=== PATIENT | female | born 1930 | race African-American/Black ===

== ENCOUNTER 2021-12-03 10:49 | Inpatient (IN) ==
[2021-12-03] MEDS ORDERED: SODIUM CHLORIDE 0.9% 2,200 ML IV ONE (11:16)
[2021-12-03] MEDS ORDERED: CLINDAMYCIN INJ 600 MG/50 ML PREMIX IV STA (11:17)
[2021-12-03] MEDS ORDERED: LEVOFLOXACIN INJ 750 MG/150 ML PREMIX IV STA (11:17)
[2021-12-03 11:44] LABS: Basophils % 0.3 % (0.0-0.8); Eosinophils # 0.1 10*3/uL (0.0-0.87); Eosinophils % 0.7 % (0.00-10.9); Hematocrit 29.8 VOL% (35.7-47.0); Hemoglobin 9.4 GM/DL (12.0-16.0); Immature Granulocytes % 1.6 %; Immature Granulocytes Absolute 0.16 #; Lymphocytes # 1.8 10*3/uL (1.4-4.0); Lymphocytes % 18.4 % (21.3-54.2); Mean Corpuscular HGB Conc 31.5 GM/DL (32-36); Mean Corpuscular Volume 92.8 FL (87-102); Mean Platelet Volume 8.7 FL (9.6-12.0); Monocytes % 10.9 % (1.7-12.7); NRBC # 0.02 10*3/uL; Neutrophils % 68.1 % (38.7-73.9); Platelet Count 216 T/CUMM (130-400); Red Blood Count 3.21 MC/CUMM (3.8-5.5); Red Cell Distribution Width 14.7 % (9.3-17.3); White Blood Count 9.7 T/CUMM (4-12)
[2021-12-03 12:07] LABS: Albumin 1.4 G/DL (3.4-5.0); Bilirubin,Total 1.6 MG/DL (0.20-1.00); Calcium 9.3 MG/DL (8.5-10.1); Potassium 4.1 MMOL/L (3.5-5.1); Total Protein 5.9 G/DL (6.4-8.2)
[2021-12-03 12:19] LABS: Bilirubin,Urine Negative (Negative); Blood, Urine Negative (Negative); Glucose,Urine (UA) Negative (Negative); Ketones,Urine Negative (Negative); Mucus,Urine Occasional /LPF (Occasional); Nitrite,Urine Negative (Negative); Protein,Urine 30 MG/DL; RBC,Urine 2 /HPF (0-4); Squamous Epithelial Cell,Urine Occasional /HPF (0-10); Urine Appearance Slightly Hazy (Clear); Urine Color Amber (Yellow); Urine Specific Gravity 1.019 (1.001-1.035)
[2021-12-03 13:03] LABS: INR 1.1; PT Patient Result 12.1 SECS (10.5-12.0); Partial Thromboplastin Time 27.3 SECS (23.8-32.1)
[2021-12-03] MEDS ORDERED: DEXTROSE 10% 250 ML BAG IV PRN (20:42)
[2021-12-03] MEDS ORDERED: GLUCAGON 1 MG VIAL IM PRN (20:42)
[2021-12-03] MEDS ORDERED: ONDANSETRON 4 MG/2 ML VIAL IV PRN (20:45)
[2021-12-03] MEDS: CLINDAMYCIN INJ 600 MG/50 ML PREMIX IV SCH (22:08)
[2021-12-03] MEDS: SODIUM HYPOCHLORITE 0.25% IRRIG 473 ML BOTTLE TOP SCH ×2 (22:08→23:15)
[2021-12-03] MEDS: ENOXAPARIN 40 MG/0.4 ML SYRINGE SUBCUT SCH (22:08)
[2021-12-04] MEDS: SODIUM HYPOCHLORITE 0.25% IRRIG 473 ML BOTTLE TOP SCH ×3 (01:03→21:10)
[2021-12-04] MEDS: INSULIN REGULAR 100 UNIT/ML SUBCUT SCH ×4 (01:03→18:41)
[2021-12-04] MEDS: CLINDAMYCIN INJ 600 MG/50 ML PREMIX IV SCH ×3 (03:34→17:50)
[2021-12-04 04:50] LABS: Basophils % 0.1 % (0.0-0.8); Eosinophils % 0.1 % (0.00-10.9); Hematocrit 23.3 VOL% (35.7-47.0); Immature Granulocytes % 1.7 %; Immature Granulocytes Absolute 0.16 #; Lymphocytes # 1.5 10*3/uL (1.4-4.0); Lymphocytes % 16.2 % (21.3-54.2); Mean Corpuscular HGB Conc 31.3 GM/DL (32-36); Mean Corpuscular Volume 93.6 FL (87-102); Mean Platelet Volume 8.7 FL (9.6-12.0); Monocytes % 13.1 % (1.7-12.7); Neutrophils % 68.8 % (38.7-73.9); Platelet Count 176 T/CUMM (130-400); Red Cell Distribution Width 14.9 % (9.3-17.3); White Blood Count 9.4 T/CUMM (4-12)
[2021-12-04 04:51] LABS: Hemoglobin 7.3 GM/DL (12.0-16.0); Red Blood Count 2.49 MC/CUMM (3.8-5.5)
[2021-12-04 05:01] LABS: Potassium 4.3 MMOL/L (3.5-5.1)
[2021-12-04 05:09] LABS: Band Neutrophils 4 % (0-10); Hypochromia 1+; Lymphocytes 14 % (20-55); Microcytosis 1+; Platelet Estimate Adequate; Segmented Neutrophils 67 % (50-85); Total Cells Counted 100
[2021-12-04] MEDS: PANTOPRAZOLE 40 MG VIAL IV SCH (08:31)
[2021-12-04] MEDS: LEVOFLOXACIN INJ 750 MG/150 ML PREMIX IV SCH (11:44)
[2021-12-04] MEDS: ACETAMINOPHEN 325 MG TABLET PO PRN (13:32)
[2021-12-04] MEDS: ENOXAPARIN 40 MG/0.4 ML SYRINGE SUBCUT SCH (21:10)
[2021-12-05] MEDS: CLINDAMYCIN INJ 600 MG/50 ML PREMIX IV SCH ×4 (01:09→17:48)
[2021-12-05] MEDS: INSULIN REGULAR 100 UNIT/ML SUBCUT SCH ×4 (01:09→18:24)
[2021-12-05] MEDS: ACETAMINOPHEN 325 MG TABLET PO PRN ×3 (04:06→13:30)
[2021-12-05 06:39] LABS: Basophils % 0.1 % (0.0-0.8); Eosinophils % 0.1 % (0.00-10.9); Hematocrit 24.9 VOL% (35.7-47.0); Hemoglobin 7.9 GM/DL (12.0-16.0); Immature Granulocytes % 2.4 %; Immature Granulocytes Absolute 0.23 #; Lymphocytes # 1.5 10*3/uL (1.4-4.0); Lymphocytes % 15.2 % (21.3-54.2); Mean Corpuscular HGB Conc 31.7 GM/DL (32-36); Mean Corpuscular Volume 91.9 FL (87-102); NRBC # 0.02 10*3/uL; Neutrophils % 69.2 % (38.7-73.9); Platelet Count 190 T/CUMM (130-400); Red Blood Count 2.71 MC/CUMM (3.8-5.5); White Blood Count 9.6 T/CUMM (4-12)
[2021-12-05 07:06] LABS: Band Neutrophils 4 % (0-10); Hypochromia 1+; Lymphocytes 16 % (20-55); Microcytosis 1+; Platelet Estimate Adequate; Segmented Neutrophils 72 % (50-85); Total Cells Counted 100
[2021-12-05 07:10] LABS: Calcium 9.7 MG/DL (8.5-10.1); Osmolality,Calculated 274.2 MOS/KG (273-304); Potassium 4.2 MMOL/L (3.5-5.1)
[2021-12-05 07:39] LABS: Alkaline Phosphatase 82 U/L (45-117); Total Protein 5.2 G/DL (6.4-8.2)
[2021-12-05 07:44] LABS: Alanine Aminotransferase 104 U/L (13-56); Aspartate Amino Transferase 150 U/L (0-37); Calcium 9.1 MG/DL (8.5-10.1)
[2021-12-05 07:46] LABS: Bilirubin,Total < 0.39 MG/DL (0.20-1.00); Blood Urea Nitrogen 28 MG/DL (7-18); Estimated Glom Filtration Rate 86 ML/MIN; Glucose 108 MG/DL (74-106); Osmolality,Calculated 279.8 MOS/KG (273-304); Sodium 137 MMOL/L (136-145)
[2021-12-05 07:48] LABS: Carbon Dioxide 30 MMOL/L (21-32); Potassium 4.3 MMOL/L (3.5-5.1)
[2021-12-05] MEDS: PANTOPRAZOLE 40 MG VIAL IV SCH (09:30)
[2021-12-05] MEDS: SODIUM HYPOCHLORITE 0.25% IRRIG 473 ML BOTTLE TOP SCH ×2 (09:31→21:34)
[2021-12-05] MEDS: MORPHINE 2 MG/1 ML SYRINGE IV PRN (14:00)
[2021-12-05] MEDS: LEVOFLOXACIN INJ 750 MG/150 ML PREMIX IV SCH (16:05)
[2021-12-05] MEDS: ENOXAPARIN 40 MG/0.4 ML SYRINGE SUBCUT SCH (21:34)
[2021-12-06] MEDS: CLINDAMYCIN INJ 600 MG/50 ML PREMIX IV SCH ×4 (00:03→17:47)
[2021-12-06] MEDS: ACETAMINOPHEN 325 MG TABLET PO PRN (00:04)
[2021-12-06] MEDS: MORPHINE 2 MG/1 ML SYRINGE IV PRN ×2 (00:07→12:14)
[2021-12-06] MEDS: INSULIN REGULAR 100 UNIT/ML SUBCUT SCH ×4 (00:27→17:45)
[2021-12-06] MEDS: PANTOPRAZOLE 40 MG VIAL IV SCH (09:10)
[2021-12-06] MEDS ORDERED: TUBERCULIN SKIN TEST 0.1 ML SYRINGE INTRADERM ONE (09:30)
[2021-12-06] MEDS: SODIUM HYPOCHLORITE 0.25% IRRIG 473 ML BOTTLE TOP SCH ×2 (09:30→23:08)
[2021-12-06] MEDS: LEVOFLOXACIN INJ 750 MG/150 ML PREMIX IV SCH (13:02)
[2021-12-06] MEDS: ENOXAPARIN 40 MG/0.4 ML SYRINGE SUBCUT SCH (23:08)
[2021-12-07] MEDS: CLINDAMYCIN INJ 600 MG/50 ML PREMIX IV SCH ×3 (01:12→12:54)
[2021-12-07] MEDS: INSULIN REGULAR 100 UNIT/ML SUBCUT SCH ×3 (03:23→15:32)
[2021-12-07] MEDS: PANTOPRAZOLE 40 MG VIAL IV SCH (08:58)
[2021-12-07 12:50] VITALS: BP 118/56
[2021-12-07] MEDS: SODIUM HYPOCHLORITE 0.25% IRRIG 473 ML BOTTLE TOP SCH (15:32)
[2021-12-07] MEDS: LEVOFLOXACIN INJ 750 MG/150 ML PREMIX IV SCH (15:33)
== END 2021-12-07 15:05 | disposition home health service (06) | DRG 593 ==
LOC: EDBD → EDUNIT# → N.ED 10:49 → N.EDINP 20:42 → SUATTDRO 20:42 → N.3E 22:08
PROVIDERS: ADMIT Internal Medicine; ATTEND Emergency Medicine